=== PATIENT | female | born 1955 | race Caucasian/White ===

== ENCOUNTER → 2024-06-05 08:00 | Outpatient (CLI) | payer MEDICARE, OTHER, SELFPAY ==
--- NOTE | 2024-06-05 08:06 | DI.MRI.S_ITS ---
PROCEDURE: MR ABDOMEN ADRENAL PROTOCOL INDICATIONS: NEW DX ESOPHAGEAL SCC, PRIOR SURGERY CHEMO TECHNIQUE: Coronal HASTE, axial 2-D FLASH in- and [id number] with subtractions from the hepatic dome to the iliac crests. COMPARISON: Outside Facility, CT, CT IVP A/P W/WO, 10/14/2023, 10:26. Outside Facility, CT, CT CHEST ABD PEL W CON, 05/05/2024, 13:43. Outside Facility, CT, CT IVP A/P W/WO, 03/24/2024, 16:27. FINDINGS: Image quality: Diagnostic. Lung bases: Minuscule left pleural fluid. Liver: No conspicuous mass on the T2 images. Gallbladder: No gallstones or wall thickening. Biliary ducts: No biliary dilation. Pancreas: No ductal dilation. Spleen: Absent. Adrenal Glands: No convincing adrenal nodule. Kidneys and Ureters: No hydronephrosis. No solid mass. No complex renal cystic lesion which requires follow up. Stomach and Bowel: Percutaneous jejunostomy tube. No dilated loops of bowel seen. Peritoneum: No abnormal intraperitoneal fluid. No free air. Ventral Wall: No hernia. Susceptibility artifact. Abdominal Nodes: No retroperitoneal or mesenteric adenopathy by size criteria. Vessels: Aorta and inferior vena cava are normal in size. Pelvis: No pelvic mass. Bones: No aggressive osseous abnormality. Mild scoliosis. IMPRESSION: No convincing adrenal nodule. Dictated by: Rufino Dubose M.D. on 06/05/2024 at 10:01 Approved by: Rufino Dubose M.D. on 06/05/2024 at 10:14
== END ==
PROVIDERS: Referring Provider Radiology Radiation Oncology; Visit Provider Radiology Radiation Oncology
DX: C15.4 Malignant neoplasm of middle third of esophagus (principal)
CPT/HCPCS: 74181